=== PATIENT | male | born 1960 | race African-American/Black ===

== ENCOUNTER 2021-04-03 17:21 | Emergency (ER) | payer SELFPAY ==
[~2021-04-03] VITALS: Ht 170.2 cm; Wt 73.0 kg
[2021-04-03] MEDS ORDERED: SILVER NITRATE APPLICATOR STICK TOP ONE (21:45)
[2021-04-03] MEDS ORDERED: ACETAMINOPHEN 325MG TABLET PO ONE ×2 (21:45→23:00)
[2021-04-03] MEDS ORDERED: BACITRACIN ZINC OINT UDPKT TOP ONE (21:45)
[2021-04-03] MEDS ORDERED: LIDOCAINE HCL/EPINEPHRINE 1%-EPI 1:100,000 20 ML VIAL INFIL ONE (21:45)
[2021-04-03] MEDS ORDERED: TRANEXAMIC ACID 1,000 MG/10 ML IV ONE (22:00)
[2021-04-03] MEDS ORDERED: SULF1TAB48 MT (23:36)
[2021-04-03] MEDS ORDERED: OXYC-100 MT (23:36)
[2021-04-03 23:52] LABS: HEPATITIS B SURFACE ANTIGEN NEGATIVE
[2021-04-04 00:47] VITALS: BP 148/76
== END 2021-04-04 00:15 | disposition home or self-care (01) ==
LOC: ER 17:21
DX: S62.651B Nondisplaced fracture of middle phalanx of left index finger, initial encounter for open fracture (principal); W27.0XXA Contact with workbench tool, initial encounter; Y93.89 Activity, other specified; Y92.89 Other specified places as the place of occurrence of the external cause
CPT/HCPCS: 12002; 36415; 73130; 96374; 99284; J3490